=== PATIENT | female | born 1955 | race American Indian/Alaskan Native ===

== ENCOUNTER 2017-05-29 23:35 | Emergency (ER) | payer SELFPAY ==
[2017-05-29] MEDS ORDERED: CATAPRES ONE (23:55)
[2017-05-29] MEDS: CATAPRES PO ONE (23:56)
[2017-05-30 00:51] LABS: Basophils % (Auto) 0.6 % (0.0-1.8); Eosinophils % (Auto) 0.4 % (0.0-4.3); Hematocrit 35.4 % (30.3-42.9); Hemoglobin 11.7 gm/dl (10.1-14.3); Mean Corpuscular HGB Conc 33 % (30-34); Mean Corpuscular Hemoglobin 30 pg (28-32); Mean Corpuscular Volume 89 fl (79-97); Platelet Count 170 K/mm3 (140-440); Red Blood Count 3.96 M/mm3 (3.65-5.03); Red Cell Distribution Width 15.5 % (13.2-15.2); White Blood Count 10.7 K/mm3 (4.5-11.0)
[2017-05-30 01:00] LABS: INR 0.92 (0.87-1.13); Partial Thromboplastin Time 30.3 Sec. (24.2-36.6)
[2017-05-30 01:18] VITALS: BP 111/63
--- NOTE | 2017-05-30 01:27 | Emergency Department Report ---
HPI - General Chief Complaint: Nosebleed Time Seen by Provider: 05/30/17 01:16 - HPI HPI: Room 17 The patient is a 62-year-old female presenting with a chief complaint of epistaxis. Patient states that 18:00 she noticed lumen of blood at the left naris. The patient states later that evening at approximately 23:30 she sneezed and then the bleeding increase. Patient then came to the ED for management. The patient states she was diagnosed with hypertension past but has not been on blood pressure medication for at least 2 years. Patient was administered clonidine had labs drawn prior to my arrival. The patient states the bleeding has now stopped Location: Nose Duration: [see above] Quality: Bleeding Severity: Moderate Modifying factors: [see above] Context: [see above] Mode of transportation: Unknown ED Past Medical Hx - Past Medical History Previous Medical History?: Yes Hx Hypertension: Yes - Surgical History Past Surgical History?: No - Family History Family history: no significant - Social History Smoking Status: Current Every Day Smoker (1/4 pack per day) Substance Use Type: None (denies illicit drug use), Alcohol (occasional) - Medications Home Medications: Home Medications Medication Instructions Recorded Confirmed Last Taken Type amLODIPine [Norvasc] 10 mg PO DAILY #90 tab 05/30/17 Unknown Rx ED Review of Systems ROS: Stated complaint: NOSE BLEED Other details as noted in HPI Comment: All other systems reviewed and negative Constitutional: denies: chills, fever Eyes: denies: eye pain, eye discharge, vision change ENT: epistaxis Respiratory: denies: cough, shortness of breath, wheezing Cardiovascular: denies: chest pain, palpitations Endocrine: no symptoms reported Gastrointestinal: denies: abdominal pain, nausea, diarrhea Genitourinary: denies: urgency, dysuria, discharge Musculoskeletal: denies: back pain, joint swelling, arthralgia Skin: denies: rash, lesions Neurological: denies: headache, weakness, paresthesias Psychiatric: denies: anxiety, depression Hematological/Lymphatic: other (epistaxis) Physical Exam - Physical Exam Vital Signs: Vital Signs 05/29/17 05/30/17 05/30/17 23:54 00:00 00:09 Temperature 98.4 F Pulse Rate 118 H 87 107 H Respiratory 19 25 H 18 Rate Blood Pressure 194/90 Blood Pressure 232/125 [Right] O2 Sat by Pulse 100 100 Oximetry 05/30/17 05/30/17 05/30/17 00:20 00:40 01:00 Temperature Pulse Rate 78 80 71 Respiratory 12 24 18 Rate Blood Pressure 190/76 176/68 111/63 Blood Pressure [Right] O2 Sat by Pulse 99 96 92 Oximetry Physical Exam: GENERAL: The patient is well-developed well-nourished female lying on stretcher not appearing to be in acute distress. No active bleeding seen at this time HEENT: Normocephalic. Atraumatic. Extraocular motions are intact. Patient has moist mucous membranes. Dry blood in the left naris. Hemostatic. No blood in the oropharynx NECK: Supple. Trachea midline CHEST/LUNGS: Clear to auscultation. There is no respiratory distress noted. HEART/CARDIOVASCULAR: Regular. There is no tachycardia. There is no gallop rub or murmur. ABDOMEN:Patient has normal bowel sounds. There is no abdominal distention. SKIN: There is no diaphoresis. NEURO: The patient is awake, alert, and oriented. The patient is cooperative. The patient has normal speech MUSCULOSKELETAL: There is no evidence of acute injury. ED Course Vital Signs 05/29/17 05/30/17 05/30/17 23:54 00:00 00:09 Temperature 98.4 F Pulse Rate 118 H 87 107 H Respiratory 19 25 H 18 Rate Blood Pressure 194/90 Blood Pressure 232/125 [Right] O2 Sat by Pulse 100 100 Oximetry 05/30/17 05/30/17 05/30/17 00:20 00:40 01:00 Temperature Pulse Rate 78 80 71 Respiratory 12 24 18 Rate Blood Pressure 190/76 176/68 111/63 Blood Pressure [Right] O2 Sat by Pulse 99 96 92 Oximetry ED Medical Decision Making - Lab Data Result diagrams: 05/30/17 00:25 Laboratory Tests 05/30/17 05/30/17 00:25 00:25 WBC 10.7 RBC 3.96 Hgb 11.7 Hct 35.4 MCV 89 MCH 30 MCHC 33 RDW 15.5 H Plt Count 170 Lymph % (Auto) 12.6 L Casey % (Auto) 4.7 Eos % (Auto) 0.4 Baso % (Auto) 0.6 Lymph # 1.3 Casey # 0.5 Eos # 0.0 Baso # 0.1 Seg Neutrophils % 81.7 H Seg Neutrophils # 8.8 H PT 12.3 INR 0.92 APTT 30.3 - Differential Diagnosis epistaxis, hypertension Critical care attestation.: If time is entered above; I have spent that time in minutes in the direct care of this critically ill patient, excluding procedure time. ED Disposition Clinical Impression: Epistaxis, Hypertension Disposition: DC- TO HOME OR SELFCARE Is pt being admited?: No Does the pt Need Aspirin: No Condition: Stable Instructions: Hypertension (ED), Epistaxis (ED) Additional Instructions: Return to the emergency department immediately should you develop worsening symptoms, fever, inability to tolerate food or liquid or any other concerns. Prescriptions: amLODIPine [Norvasc] 10 mg PO DAILY #90 tab Referrals: CROW BAKER MD [Staff Physician] - JACKLYN (Dr. Baker is a primary physician. Please follow up with him to be established with patient and for further management of your high blood pressure) ABIGAIL RIVERA MD [Staff Physician] - JACKLYN (Dr. Rivera's is an ear Nose and throat doctor (metallurgical tester). Please follow up with her for further evaluation) Time of Disposition: 01:30
== END 2017-05-30 02:09 | disposition home or self-care (01) ==
LOC: ED 23:35
DX: R04.0 Epistaxis (principal); I10 Essential (primary) hypertension; F17.200 Nicotine dependence, unspecified, uncomplicated
CPT/HCPCS: 36415; 85025; 85610; 85730; 99283

== ENCOUNTER 2017-05-30 13:30 | Emergency (ER) | payer SELFPAY ==
[2017-05-30] MEDS ORDERED: NORVASC ONE (14:09)
[2017-05-30] MEDS ORDERED: NORVASC PO ONE (14:15)
[2017-05-30] MEDS ORDERED: AFRIN NS ONE (15:39)
[2017-05-30] MEDS ORDERED: CATAPRES PO ONE (16:09)
[2017-05-30 17:17] VITALS: BP 118/58
--- NOTE | 2017-05-30 17:21 | Emergency Department Report ---
HPI - General Chief Complaint: Nosebleed Time Seen by Provider: 05/30/17 15:12 - HPI HPI: 62-year-old female presents the emergency department with complaint of a nosebleed from the left nostril that restarted again this afternoon. The patient was here at [facility] last night for the same symptoms as well as elevated blood pressure. She was prescribed Norvasc at that time which she dropped off at the pharmacy today but has not yet filled. She presents with very elevated blood pressure. She denies any headache, vision change, chest pain, shortness of breath. She has a history of hypertension but had not previously been compliant with her medications or with seeing a primary care physician. She is a tobacco smoker. She does drink a moderate amount of caffeinated products each day. No recent travel or sick contacts at home. ED Past Medical Hx - Past Medical History Previous Medical History?: Yes Hx Hypertension: Yes - Surgical History Past Surgical History?: Yes Additional Surgical History: hysterectomy - Social History Smoking Status: Current Every Day Smoker Substance Use Type: Alcohol - Medications Home Medications: Home Medications Medication Instructions Recorded Confirmed Last Taken Type amLODIPine [Norvasc] 10 mg PO DAILY #90 tab 05/30/17 Unknown Rx ED Review of Systems ROS: Stated complaint: CONTINUOUS NOSE BLEED Other details as noted in HPI Comment: All other systems reviewed and negative Constitutional: denies: chills, fever Eyes: denies: eye pain, eye discharge, vision change ENT: epistaxis. denies: ear pain, throat pain Respiratory: denies: cough, shortness of breath, wheezing Cardiovascular: denies: chest pain, palpitations Gastrointestinal: denies: abdominal pain, nausea, diarrhea Genitourinary: denies: urgency, dysuria, discharge Musculoskeletal: denies: back pain, joint swelling, arthralgia Skin: denies: rash, lesions Neurological: denies: headache, weakness, paresthesias Physical Exam - Physical Exam Vital Signs: Vital Signs 05/30/17 05/30/17 05/30/17 14:01 14:12 14:52 Temperature 98.7 F Pulse Rate 114 H 114 H 75 Respiratory 18 17 Rate Blood Pressure 206/108 206/108 Blood Pressure 148/78 [Right] O2 Sat by Pulse 99 100 Oximetry 05/30/17 05/30/17 05/30/17 15:50 16:35 17:04 Temperature Pulse Rate 86 74 90 Respiratory 18 20 Rate Blood Pressure 170/88 Blood Pressure 153/99 114/57 [Right] O2 Sat by Pulse 99 99 Oximetry Physical Exam: GENERAL: The patient is well-developed well-nourished. HEENT: Normocephalic. Atraumatic. Extraocular motions are intact. Patient has moist mucous membranes. Pupils equal reactive to light bilaterally. Oropharynx is clear. There is a moderate amount of blood seen in the left nasal passage. NECK: Supple. Trachea is midline. CHEST/LUNGS: Clear to auscultation. There is no respiratory distress noted. HEART/CARDIOVASCULAR: Regular. There is no tachycardia. There is no gallop rub or murmur. ABDOMEN: Abdomen is soft, nontender. Patient has normal bowel sounds. There is no abdominal distention. SKIN: Skin is warm and dry. NEURO: The patient is awake, alert, and oriented. The patient is cooperative. The patient has no focal neurologic deficits. The patient has normal speech. MUSCULOSKELETAL: There is no tenderness or deformity. There is no limitation range of motion. There is no evidence of acute injury. ED Course Vital Signs 05/30/17 05/30/17 05/30/17 14:01 14:12 14:52 Temperature 98.7 F Pulse Rate 114 H 114 H 75 Respiratory 18 17 Rate Blood Pressure 206/108 206/108 Blood Pressure 148/78 [Right] O2 Sat by Pulse 99 100 Oximetry 05/30/17 05/30/17 05/30/17 15:50 16:35 17:04 Temperature Pulse Rate 86 74 90 Respiratory 18 20 Rate Blood Pressure 170/88 Blood Pressure 153/99 114/57 [Right] O2 Sat by Pulse 99 99 Oximetry ED Medical Decision Making - Medical Decision Making 62-year-old female presents for second day in a row with elevated blood pressure and left-sided epistaxis. She had not filled her amlodipine that was written for her yesterday. The epistaxis started again this afternoon. She had a moderate amount of blood seen in the left nasal passage on first presentation. However she packed it with some gauze and held pressure and we got her blood pressure down to a much more reasonable level. At this point the nasal passage was rechecked and the bleeding had ceased. We continued to watch her for an hour or so and the bleeding did not restart. For this reason I did not feel it was necessary to nasally pack her. She was once again written for amlodipine and told to pick it up at [facility] ? where the medication is free. She is a tobacco smoker who also drinks caffeinated products and eat salty food so we discussed dietary and/or lifestyle changes that will also help with her blood pressure. We discussed things to do if the bleeding restarts and she will return to the ER if this is necessary. Critical Care Time: No Critical care attestation.: If time is entered above; I have spent that time in minutes in the direct care of this critically ill patient, excluding procedure time. ED Disposition Clinical Impression: Epistaxis Hypertension Qualifiers: Hypertension type: essential hypertension Qualified Code(s): I10 - Essential ( primary) hypertension Disposition: TO HOME OR SELFCARE Is pt being admited?: No Condition: Stable Instructions: Epistaxis (ED), Hypertension (ED) Additional Instructions: Please fill your blood pressure medication. Keep a blood pressure log. Try and quit smoking. Stay away from foods that are high in salt caffeinated products. If your nose begins to bleed again, hold your head level and hold pressure to both sides of your nose for 20 minutes straight. If you're still bleeding after this time, return to the emergency department for further evaluation. Prescriptions: amLODIPine [Norvasc] 10 mg PO DAILY #90 tab Referrals: PRIMARY CAREMD [Primary Care Provider] - 3-5 Days VIKY ALLEN MD [Staff Physician] - 3-5 Days [facility] [Outside] - 3-5 Days Time of Disposition: 17:20
== END 2017-05-30 17:34 | disposition home or self-care (01) ==
LOC: ED 13:30
DX: R04.0 Epistaxis (principal); I10 Essential (primary) hypertension; F17.200 Nicotine dependence, unspecified, uncomplicated
CPT/HCPCS: 99283